=== PATIENT | female | born 2005 | race Caucasian/White ===

== ENCOUNTER 2023-01-08 13:18 | Emergency (ER) | payer OTHER ==
[~2023-01-08 13:18] MED LIST: Iopamidol-370 76% 500 ML MDV (1 ML CHARGE) ONE
[2023-01-08] MEDS ORDERED: Ketorolac Tromethamine 30 MG/ML VIAL ONE (14:53)
[2023-01-08 15:36] LABS: Bilirubin Negative (Negative); Blood, Urine Negative (Negative); Clarity Clear (Clear); Glucose, Urine (Dipstick) Normal (Negative); Ketone, Urine Negative (Negative); Leukocyte 75 Leu/uL (Negative); Nitrite Negative (Negative); Protein, Urine (Dipstick) Negative (Neg-Trace); RBC/HPF 0-3 HPF (0-3); Specific Gravity, Urine 1.022 (1.002-1.036); Urobilinogen Normal mg/dL (Less than 2)
[2023-01-08 15:39] LABS: Bacteria/HPF 1+ HPF (None Seen)
[2023-01-08 15:42] LABS: #Lymphocytes 0.9 thou/uL (1.20-3.40); #Monocytes 0.6 thou/uL (0.11-0.59); #Neutrophils 3.5 thou/uL (1.40-6.50); %Basophils 0.2 % (0.0-1.0); %Eosinophils 0.9 % (0.0-10.0); %Lymphocytes 18.1 % (28.0-48.0); %Monocytes 11.7 % (0.0-4.0); %Neutrophils 69.1 % (31.0-61.0); Hemoglobin 14.1 g/dL (12.0-16.0); Mean Corpuscular HGB CONC 36.3 g/dL (32.0-36.0); Mean Corpuscular Hemoglobin 34.3 pg (25.0-35.0); Mean Corpuscular Volume 94.5 fl (78.0-98.0); Platelet Count 192 10x3/uL (130-400); RBC Distribution Width 10.6 % (11.5-14.5); Red Blood Cell (RBC) Count 4.13 mill/uL (4.00-5.20); White Blood Cell (WBC) Count 5.1 10x3/uL (4.8-10.8)
[2023-01-08 15:50] LABS: BHCG - Serum Negative (NEGATIVE); Pregs Control Background? CLEAR/WHITE (CLR/WHITE); Pregs Control Bar Appear? YES (CONTROL BAR)
[2023-01-08 16:07] LABS: ALT (SGPT) 10 U/L (8-55); AST (SGOT) 13 U/L (5-30); Albumin 4.6 g/dL (3.5-5.0); Alkaline Phosphatase 62 U/L (40-100); Anion Gap 14 mmol/L (10-20); BUN (Urea Nitrogen) 10 mg/dL (8.4-21.0); Bilirubin, Total 0.3 mg/dL (0.2-1.2); Calc. Creatinine Clearance 0 mL/min (70-130); Calcium 9.9 mg/dL (7.8-10.44); Carbon Dioxide 24 mmol/L (22-29); Chloride 107 mmol/L (98-107); Estimated GFR 92; Globulin 2.5 g/dL (2.4-3.5); Glucose 80 mg/dL (70-105); Potassium 3.9 mmol/L (3.5-5.1); Protein, Total 7.1 g/dL (6.0-8.3); Sodium 141 mmol/L (136-145)
[2023-01-08] MEDS ORDERED: Morphine 4 MG/ML VIAL ONE (17:53)
== END 2023-01-08 18:50 | disposition short-term general hospital (02) ==
LOC: ERS 13:18
DX: N83.291 Other ovarian cyst, right side (principal)
CPT/HCPCS: 74177; 76856; 80053; 81003; 81015; 83690; 84703; 85025; 96374; 96375; J1885; J2270; Q9967